=== PATIENT | male | born 1990 | race African-American/Black ===

== ENCOUNTER 2019-07-23 07:56 | Emergency (ER) | payer MEDICAID ==
[~2019-07-23] VITALS: Ht 182.9 cm; Wt 97.5 kg
[2019-07-23 08:01] VITALS: BP 140/80
[2019-07-23] MEDS ORDERED: NKM (08:06)
--- NOTE | 2019-07-23 08:08 | NUR ---
ED Nurse Note: Patient walked into ED from home c/o "gum lining pain" for 2 days, mainly on the top teeth, patient reports swelling on his mouth and tongue, able to speak in full sentences and no SOB noted. Patient is alert awake x4 ambulatory steady gait, breathing unlabored and even.
[2019-07-23] MEDS ORDERED: Lidocaine 2% Visc 15ml soln ORAL ONE (08:15)
--- NOTE | 2019-07-23 08:21 | Emergency Room Report ---
History of Present Illness General Chief Complaint: Pain Source: Patient Present Illness HPI 29-year-old male presents with mouth pain, he states that he smokes some marijuana, 2 days ago he now has irritated gums, aching pain, no aggravating or alleviating factors, severity is moderate, constant, patient is worried that maybe he burned his mouth, he denies any chest pain shortness of breath patient presents for evaluation Allergies: Coded Allergies: No Known Allergies (Unverified , 07/23/19) Patient History Past Medical History: see triage record Social History: Reports: drug use - Marijuana Reviewed Nursing Documentation: PMH: Agreed; PSxH: Agreed Nursing Documentation-PMH Past Medical History: No Stated History Review of Systems All Other Systems: negative except mentioned in HPI Physical Exam Vital Signs Date Time Temp Pulse Resp B/P (MAP) Pulse Ox O2 Delivery O2 Flow Rate FiO2 07/23/19 08:01 98.1 86 18 140/80 100 Room Air Sp02 EP Interpretation: reviewed, normal General Appearance: well appearing, no apparent distress, alert Head: normocephalic, atraumatic Eyes: bilateral eye PERRL, bilateral eye EOMI ENT: uvula midline, moist mucus membranes, other - Inflamed gums Neck: supple, thyroid normal, supple/symm/no masses Respiratory: lungs clear, no respiratory distress, no retraction, no accessory muscle use Cardiovascular #1: normal peripheral pulses, regular rate, rhythm, no edema, no gallop, no murmur Gastrointestinal: non tender, soft, no guarding, no rebound Musculoskeletal: normal inspection Neurologic: alert, oriented x3 Psychiatric: mood/affect normal Skin: no rash, warm/dry Medical Decision Making Diagnostic Impression: Primary Impression: Acute gingival inflammation ER Course 29-year-old male presents with acute inflamed gums,Counseled patient not to utilize marijuana anymore, pain control with viscous lidocaine, counseled patient to follow-up with dentistry, disposition home with return precautions Last Vital Signs Date Time Temp Pulse Resp B/P (MAP) Pulse Ox O2 Delivery O2 Flow Rate FiO2 07/23/19 08:01 98.1 86 18 140/80 (100) 100 Room Air Disposition: HOME, SELF-CARE Condition: Stable Scripts Naproxen* (NAPROSYN*) 250 Mg Tablet 250 MG ORAL BID PRN for For Pain, #20 TAB 0 Refills Prov: Romario Arriola MD 07/23/19 Referrals: [facility] Michael. [facility] [employer] [facility] Patient Instructions: Dental Pain, [id number] Additional Instructions: The patient was provided with discharge instructions, notified to follow-up with a primary care doctor and or specialist in the next 24-48 hours, and to return to the ED if they have worsening of their symptoms. Please note that this report is being documented using [employer] technology. This can lead to erroneous entry secondary to incorrect interpretation by the dictating instrument. Romario Arriola MD Jul 23, 2019 08:21
[2019-07-23] MEDS ORDERED: NAPROXEN250 MG ORAL (08:24)
[2019-07-23] MEDS ORDERED: oxyCODONE HCL/Acetaminophen 5/325mg ORAL ONE (08:30)
[2019-07-23 08:43] VITALS: BP 140/80
--- NOTE | 2019-07-23 08:44 | NUR ---
ER DISCHARGE NOTE: Patient is cleared to be discharged per ERMKelin GOMEZ, pt is aox4, on room air, with stable vital signs. pt was given dc and prescription instructions, pt was able to verbalize understanding, pt id band removed without complications. pt is able to ambulate with steady gait. pt took all belongings. patient reports his girlfriedn will drive and take him back to home.
== END 2019-07-23 08:43 | disposition home or self-care (01) ==
LOC: EMR 08:29
DX: K05.00 Acute gingivitis, plaque induced (principal); F12.90 Cannabis use, unspecified, uncomplicated
CPT/HCPCS: 99282